=== PATIENT | male | born 1985 | race Caucasian/White ===

== ENCOUNTER 2020-05-09 02:20 | Emergency (ER) | payer OTHER, SELFPAY ==
[2020-05-09] VITALS (7 sets, daily range): BP systolic 142–168; BP diastolic 86–116; PULSE 91–102; RESP 16–18; TEMP 36.4–36.7; O2SAT 95–99; BMI 31.6
--- NOTE | 2020-05-09 03:36 | ED_ITS ---
HPI - Psych General Chief Complaint: ETOH/Substance Use Stated Complaint: crisis Time Seen by Provider: 05/09/20 02:30 Source: patient Mode of arrival: EMS History of Present Illness HPI Narrative: This is a 34-year-old male history alcohol dependency states that he was scheduled to go through a detox program at [place], however he showed up approximately an hour late and they declined to accept him. Patient states that he then began feeling very overwhelmed, hopeless, and began having thoughts of wanting to harm himself by either jumping off of a bridge or ?drinking himself to ?. He states he has never been admitted for depression or suicide attempt. Related Data Allergies Allergy/AdvReac Type Severity Reaction Status Date / Time haloperidol [From HALDOL] Allergy Unknown UNKNOWN Unverified 01/19/20 19:37 Review of Systems Review of Systems: Pertinent positives and negatives as stated in HPI 10 point review systems is otherwise negative. PMFSH Past Medical History Source: nursing notes reviewed Social History Social History Alcohol intake: current Alcohol intake frequency: 3 or more drinks per day Alcohol type: hard liquor Smoking Status: Current every day smoker Smoked in Last 30 Days: Yes Use of substances other than those prescribed or required for medical reasons: No Advance Directives: No Physical Exam Vital Signs: Vital Signs: Last Vital Signs Temp 97.6 F 05/09/20 06:36 Pulse 102 H 05/09/20 06:36 Resp 18 05/09/20 06:36 BP 142/86 H 05/09/20 06:36 Pulse Ox 95 05/09/20 06:36 Body Mass Index 31.6 VITAL SIGNS: Reviewed. GENERAL: Well developed, well nourished, mild emotion distress. HEAD: Normocephalic/atraumatic, EYES: PERRLA, EOMI intact without pain OROPHARYNX: no oral lesions noted, posterior pharynx clear and non-erythematous without noted tonsillar enlargement/erythema/exudates NECK: Supple, no adenopathy LUNGS: Normal breath sounds. No adventitious sounds or accessory muscle use. SpO2<99> CARDIOVASCULAR: Regular rate and rhythm without noted murmurs, no JVD or lower extremity edema. ABDOMEN: Soft, non-tender, non-distended with bowel sounds. No rigidity. No guarding. No palpable masses or hernias noted NEUROLOGIC: Alert and oriented x 4. PSYCH: Tearful, depressed affect, logical thought process Course Course Course Narrative: This is a 34-year-old male with history and clinical presentation consistent with alcohol dependency and now with depressive symptoms requesting to speak with somebody from crisis as well as continuing to want to pursue detox from his alcohol problem. Patient was placed on a CIWA scale with Librium p.r.n. and an ethanol as well as HARP were obtained. All investigations were reviewed and patient is currently medically cleared for further evaluation by the crisis team. Sign out given to DR Perez. MDM - Psych Restraints Face to Face Assessment: Face to Face Assessment: Current Situation: After assessment of the patient, a review of the pertinent medical record and a discussion with nursing staff, I feel the patient requires a restrain intervention. Reaction To: [] Medical Condition: [] Behavioral State: [] Continued Need: [] Lab Data Labs: Lab Results 05/09/20 05/09/20 05/09/20 Range/Units 04:26 04:26 04:27 Urine Opiates Screen Not Detected (Not Detect) Ur Barbiturates Screen Not Detected (Not Detect) Ur Phencyclidine Scrn Not Detected (Not Detect) Ur Amphetamines Screen Not Detected (Not Detect) U Benzodiazepines Scrn Not Detected (Not Detect) Urine Cocaine Screen Not Detected (Not Detect) U Marijuana (THC) Screen POSITIVE H (Not Detect) Ethyl Alcohol 239 mg/dL COVID-19 (PEDRITO) Negative (Negative) COVID-19 Clin Com See Note
[2020-05-09 04:50] LABS: Ethanol 239 mg/dL; IDNOW Serial# 9DD0AD1C
[2020-05-09 04:51] LABS: COVID-19 Test Negative (Negative)
[2020-05-09 04:53] LABS: Amphetamine Screen Urine Not Detected (Not Detect); Barbiturates, Urine Not Detected (Not Detect); Benzodiazepines Screen Urine Not Detected (Not Detect); Cannabinoid Screen Urine POSITIVE (Not Detect); Cocaine Screen Urine Not Detected (Not Detect); Opiate Screen Urine Not Detected (Not Detect); Phencyclidine Screen Urine Not Detected (Not Detect)
--- NOTE | 2020-05-09 05:16 | PC.NURSE ---
PT seen by provider. Plan is to monitor the PT for withdrawals and then refer to detox later in the morning.
[2020-05-09] MEDS: chlordiazePOXIDE HCl 25 MG CAPSULE PO (09:21)
--- NOTE | 2020-05-09 09:28 | PC.NURSE ---
CIWA 12, patient medicated w/ PRN librium.denies SI/HI at this time, reports feeling depressed. Suboxone dose verified and faxed to pharmacy
[2020-05-09] MEDS: Buprenorphine/Naloxone 8/2 mg FILM 1 FILM SUBLINGUAL (10:03)
--- NOTE | 2020-05-09 11:59 | PC.NURSE ---
EDWINA currently speaking with patient
--- NOTE | 2020-05-09 12:11 | PC.NURSE ---
Patient requesting his property, stating that he wants to leave. Patient educated that he was just seen by N and they are going to have a conversation with the doctor for plan.
--- NOTE | 2020-05-09 12:18 | PC.NURSE ---
patient currently taking a shower
--- NOTE | 2020-05-09 12:24 | PC.NURSE ---
acid recovery operator talking to patient about request to leave
--- NOTE | 2020-05-09 12:27 | PC.NURSE ---
list of detox programs given to patient, pt now making calls
== END 2020-05-09 13:26 | disposition home or self-care (01) ==
PROVIDERS: Emergency Provider Student in an Organized Health Care Education/Training Program
DX: F33.1 Major depressive disorder, recurrent, moderate (principal); F10.229 Alcohol dependence with intoxication, unspecified; Y90.7 Blood alcohol level of 200-239 mg/100 ml; Z20.828 Contact with and (suspected) exposure to other viral communicable diseases; Z79.899 Other long term (current) drug therapy
CPT/HCPCS: 36415; 80307; 80320; 87635; 99285; J0574